=== PATIENT | male | born 1935 | race Caucasian/White ===

== ENCOUNTER 2016-07-18 12:09 | Inpatient (IN) | payer MEDICARE, MEDICAID ==
[~2016-07-18] VITALS: Ht 160 cm; Wt 65.8 kg
[~2016-07-18 12:09] MED LIST: AMLO5TAB4 PO; ASPI-605 PO; ATOR40TA PO; AZAT50TA7 PO; DONE10TA4 PO; ENOX30DI SQ; HYDR-552 PO; ISOS30TA47 PO; PANT40TA2 PO
[2016-07-18] MEDS ORDERED: IV NS 0.9% 500 ML BAG IV ONE (13:00)
[2016-07-18] MEDS ORDERED: IV NS 0.9% 500 ML IV ONE (13:12)
[2016-07-18] MEDS ORDERED: IV SET PRIMARY PUMP SET 1 EA INFUS.SET MC ONE ×3 (13:12→15:28)
[2016-07-18 13:24] LABS: DIFF TOTAL % 100 %; EOSINOPHILS % (AUTO) 0.1 % (0.0-6.0); HEMATOCRIT 43 % (39-51); LYMPHOCYTES # (AUTO) 1.1 /CMM (0.8-4.8); LYMPHOCYTES % (AUTO) 5.3 % (20.0-44.0); MEAN CORPUSCULAR HEMOGLOBIN 31 PG (26.0-33.0); MEAN CORPUSCULAR HGB CONC 33 g/dl (31.0-36.0); MEAN CORPUSCULAR VOLUME 94 fL (80-96); MONOCYTES # (AUTO) 1.6 /CMM (0.1-1.30); MONOCYTES % (AUTO) 7.8 % (2.0-12.0); NEUTROPHILS # (AUTO) 17.5 /CMM (1.8-8.9); NEUTROPHILS % (AUTO) 86.8 % (43.0-81.0); PLATELET COUNT (AUTO) 338 /CMM (150-450); RED BLOOD CELL COUNT(AUTO) 4.51 MIL/uL (4.5-6.0); WHITE BLOOD COUNT (AUTO) 20.2 K/uL (4.3-11.0)
[2016-07-18 13:38] LABS: CALCIUM, SERUM 9.3 mg/dL (8.5-10.1); CREATININE 1.6 mg/dL (0.6-1.3); POTASSIUM 4.8 mmol/L (3.5-5.1)
[2016-07-18 13:40] LABS: LACTIC ACID 1.8 mmol/L (0.4-2.0); TROPONIN I 0.338 ng/mL (0.00-0.056)
[2016-07-18 13:43] LABS: ALBUMIN 2.6 g/dL (3.4-5.0); BILIRUBIN,DIRECT 0.1 mg/dL (0.0-0.2); BILIRUBIN,TOTAL 0.4 mg/dL (0.2-1.0); INDIRECT BILIRUBIN 0.3 mg/dL (0.0-1.1); TOTAL PROTEIN, SERUM 8.1 g/dL (6.4-8.2)
[2016-07-18] MEDS ORDERED: DIVA125T2 PO (13:44)
[2016-07-18] MEDS ORDERED: VITA1TAB56 PO (13:44)
[2016-07-18] MEDS ORDERED: MAG30ORA PO (13:44)
[2016-07-18] MEDS ORDERED: OMEG1CAP40 PO (13:44)
[2016-07-18] MEDS ORDERED: ACET-868 PO (13:44)
[2016-07-18] MEDS ORDERED: LORA0.5T PO (13:44)
[2016-07-18] MEDS ORDERED: AMIN30LI4 PO (13:44)
[2016-07-18] MEDS ORDERED: MAGN400O6 PO (13:44)
[2016-07-18] MEDS ORDERED: HYDR-4076 PO (13:44)
[2016-07-18] MEDS ORDERED: ASPI-991 PO (13:44)
[2016-07-18] MEDS ORDERED: ALBU2.5V12 IH (13:45)
[2016-07-18 13:48] LABS: INR 1.17 (0.87-1.13); PROTHROMBIN TIME 12.7 SECS (9.5-12.7)
[2016-07-18 14:15] LABS: KETONES,URINE Negative (NEGATIVE); LEUKOCYTE ESTERASE ,URINE Large (NEGATIVE)
[2016-07-18 14:16] LABS: ADD UA MICROSCOPIC YES
[2016-07-18 14:29] LABS: RBC,URINE TOO NUMEROUS TO COUN /HPF (0-2); WBC,URINE TOO NUMEROUS TO COUN /HPF (0-3)
[2016-07-18 14:30] LABS: ADD URINE CULTURE YES
[2016-07-18] MEDS ORDERED: PIPERACILLIN /TAZOBACTAM 3.375 G in IV D5W 50 ML IV ONE (14:30)
[2016-07-18] MEDS ORDERED: LEVOFLOXACIN 750 MG /D5W 150ML 150 ML IV ONE ×2 (14:30→15:09)
[2016-07-18 14:48] LABS: LYMPHOCYTES % (MANUAL) 6 % (16-48)
[2016-07-18 14:49] LABS: PLATELET ESTIMATE ADEQUATE; RBC MORPHOLOGY COMMENT NORMAL RBC MORPH
[2016-07-18 15:00] VITALS: BP_SYST 161; BP_SYST 164; BP_DIAS 83; BP_DIAS 84
[2016-07-18] MEDS ORDERED: ASPIRIN 81 MG TAB.CHEW PO ONE (15:00)
[2016-07-18] MEDS ORDERED: ASPIRIN 81 MG TAB.CHEW ONE (15:09)
[2016-07-18] MEDS ORDERED: SECONDARY IV SET 1 EA INFUS.SET MC ONE (15:27)
[2016-07-18] MEDS ORDERED: IV NS 0.9% 250 ML IV ONE (15:29)
[2016-07-18] MEDS ORDERED: ALBUTEROL FS 2.5 MG/0.5 ML VIAL.NEB IH PRN (17:00)
[2016-07-18] MEDS ORDERED: ENOXAPARIN SODIUM 40 MG/0.4 ML DISP.SYRIN SQ SCH (17:00)
[2016-07-18] MEDS ORDERED: ACETAMINOPHEN 650 MG/SUPP.RECT RC PRN (17:00)
[2016-07-18] MEDS ORDERED: Z GUARD REMEDY 2 OZ OINT TP PRN (17:00)
[2016-07-18] MEDS ORDERED: ONDANSETRON HCL/PF 4 MG/2 ML VIAL IVP PRN (17:00)
[2016-07-18] MEDS ORDERED: HYDROCODONE/APAP 5/325MG 1 EACH TABLET PO PRN (17:00)
[2016-07-18] MEDS: DIVALPROEX SODIUM 125 MG TABLET.DR PO SCH (17:39)
[2016-07-18] MEDS: ENOXAPARIN SODIUM 30 MG/0.3 ML DISP.SYRIN SQ SCH (17:40)
[2016-07-18] MEDS: CEFTRIAXONE 1 G in IV D5W 50 ML IV SCH (18:00)
[2016-07-18 20:00] VITALS: BP 106/74
[2016-07-18] MEDS: ATORVASTATIN 40 MG TABLET PO SCH (21:52)
[2016-07-19] VITALS (7 sets, daily range): BP systolic 96–160; BP diastolic 55–92
[2016-07-19] MEDS: HYDROGEL DRESSING 90 GM TUBE TP SCH (09:00)
[2016-07-19] MEDS ORDERED: PANTOPRAZOLE 40 MG VIAL IV SCH (09:00)
[2016-07-19] MEDS ORDERED: Z GUARD REMEDY 2 OZ OINT TP PRN (09:00)
[2016-07-19] MEDS ORDERED: IV SET PRIMARY PUMP SET 1 EA INFUS.SET MC ONE (09:28)
[2016-07-19 09:33] LABS: BASOPHILS % (AUTO) 0.4 % (0.0-2.0); DIFF TOTAL % 100 %; EOSINOPHILS # (AUTO) 0.2 /CMM (0.0-0.7); EOSINOPHILS % (AUTO) 1.8 % (0.0-6.0); HEMATOCRIT 36 % (39-51); HEMOGLOBIN 11.8 g/dL (13.5-17.5); LYMPHOCYTES # (AUTO) 1.3 /CMM (0.8-4.8); LYMPHOCYTES % (AUTO) 10.9 % (20.0-44.0); MEAN CORPUSCULAR HEMOGLOBIN 31 PG (26.0-33.0); MEAN CORPUSCULAR HGB CONC 33 g/dl (31.0-36.0); MEAN CORPUSCULAR VOLUME 94 fL (80-96); MONOCYTES # (AUTO) 1.1 /CMM (0.1-1.30); MONOCYTES % (AUTO) 9.1 % (2.0-12.0); NEUTROPHILS # (AUTO) 9.3 /CMM (1.8-8.9); NEUTROPHILS % (AUTO) 77.8 % (43.0-81.0); PLATELET COUNT (AUTO) 319 /CMM (150-450); RED BLOOD CELL COUNT(AUTO) 3.81 MIL/uL (4.5-6.0)
[2016-07-19 09:59] LABS: CALCIUM, SERUM 8.9 mg/dL (8.5-10.1); CREATININE 1.4 mg/dL (0.6-1.3); POTASSIUM 4.4 mmol/L (3.5-5.1)
[2016-07-19] MEDS: DIVALPROEX SODIUM 125 MG TABLET.DR PO SCH ×3 (10:31→18:24)
[2016-07-19] MEDS: IV D5/0.45 NACL 1,000 ML IV PRN ×2 (10:31→21:18)
[2016-07-19] MEDS: ASPIRIN EC 81 MG TABLET.DR PO SCH (10:32)
[2016-07-19] MEDS: ISOSORBIDE DINITRATE (10MG) 10 MG TABLET PO SCH (10:32)
[2016-07-19] MEDS: PANTOPRAZOLE 40 MG TABLET.DR PO SCH (10:33)
[2016-07-19] MEDS: Z GUARD REMEDY 2 OZ OINT TP SCH (17:00)
[2016-07-19] MEDS ORDERED: SECONDARY IV SET 1 EA INFUS.SET MC ONE (17:24)
[2016-07-19] MEDS: CEFTRIAXONE 1 G in IV D5W 50 ML IV SCH (18:24)
[2016-07-19] MEDS: ATORVASTATIN 40 MG TABLET PO SCH (21:17)
[2016-07-19] MEDS: ENOXAPARIN SODIUM 30 MG/0.3 ML DISP.SYRIN SQ SCH (21:43)
[2016-07-20] MEDS: PANTOPRAZOLE 40 MG TABLET.DR PO SCH (07:30)
[2016-07-20 08:00] VITALS: BP 147/87
[2016-07-20] MEDS: ASPIRIN EC 81 MG TABLET.DR PO SCH (08:29)
[2016-07-20] MEDS: DIVALPROEX SODIUM 125 MG TABLET.DR PO SCH ×3 (08:29→17:33)
[2016-07-20] MEDS: ISOSORBIDE DINITRATE (10MG) 10 MG TABLET PO SCH (08:29)
[2016-07-20] MEDS: HYDROGEL DRESSING 90 GM TUBE TP SCH (08:31)
[2016-07-20] MEDS: Z GUARD REMEDY 2 OZ OINT TP SCH ×2 (08:31→17:36)
[2016-07-20] MEDS: IV D5/0.45 NACL 1,000 ML IV PRN (08:34)
[2016-07-20] MEDS ORDERED: LIDOCAINE 1%-EPI 1:100,000 50 ML VIAL IJ ONE (10:30)
[2016-07-20] MEDS ORDERED: SILVER NITRATE APPLICATOR 1 EA BOX TP ONE ×2 (10:30)
[2016-07-20 10:47] LABS: CALCIUM, SERUM 8.6 mg/dL (8.5-10.1); CREATININE 1.2 mg/dL (0.6-1.3); POTASSIUM 3.7 mmol/L (3.5-5.1)
[2016-07-20] MEDS ORDERED: IV SET PRIMARY PUMP SET 1 EA INFUS.SET MC ONE (12:17)
[2016-07-20] MEDS: IV D5W 1,000 ML IV PRN (12:21)
[2016-07-20 16:00] VITALS: BP 157/84
[2016-07-20] MEDS: CEFTRIAXONE 1 G in IV D5W 50 ML IV SCH (17:35)
[2016-07-20 20:00] VITALS: BP 139/79
[2016-07-20] MEDS: ATORVASTATIN 40 MG TABLET PO SCH (22:13)
[2016-07-20] MEDS: ENOXAPARIN SODIUM 30 MG/0.3 ML DISP.SYRIN SQ SCH (22:15)
[2016-07-21] MEDS: IV D5W 1,000 ML IV PRN (06:14)
[2016-07-21 07:16] LABS: BASOPHILS % (AUTO) 0.4 % (0.0-2.0); DIFF TOTAL % 100 %; EOSINOPHILS # (AUTO) 0.5 /CMM (0.0-0.7); EOSINOPHILS % (AUTO) 5.7 % (0.0-6.0); HEMATOCRIT 35 % (39-51); HEMOGLOBIN 11.8 g/dL (13.5-17.5); LYMPHOCYTES # (AUTO) 1.7 /CMM (0.8-4.8); MEAN CORPUSCULAR HEMOGLOBIN 31 PG (26.0-33.0); MEAN CORPUSCULAR HGB CONC 34 g/dl (31.0-36.0); MEAN CORPUSCULAR VOLUME 93 fL (80-96); MONOCYTES # (AUTO) 0.8 /CMM (0.1-1.30); MONOCYTES % (AUTO) 8.3 % (2.0-12.0); NEUTROPHILS # (AUTO) 6.3 /CMM (1.8-8.9); NEUTROPHILS % (AUTO) 67.6 % (43.0-81.0); PLATELET COUNT (AUTO) 299 /CMM (150-450); RED BLOOD CELL COUNT(AUTO) 3.75 MIL/uL (4.5-6.0); WHITE BLOOD COUNT (AUTO) 9.3 K/uL (4.3-11.0)
[2016-07-21 07:41] LABS: ALBUMIN 2.1 g/dL (3.4-5.0); BILIRUBIN,TOTAL 0.4 mg/dL (0.2-1.0); CALCIUM, SERUM 8.4 mg/dL (8.5-10.1); PHOSPHORUS 2.9 mg/dL (2.5-4.9); TOTAL PROTEIN, SERUM 6.7 g/dL (6.4-8.2)
[2016-07-21 08:00] VITALS: BP 146/75
[2016-07-21] MEDS: DIVALPROEX SODIUM 125 MG TABLET.DR PO SCH ×3 (08:41→16:53)
[2016-07-21] MEDS: ASPIRIN EC 81 MG TABLET.DR PO SCH (08:41)
[2016-07-21] MEDS: PANTOPRAZOLE 40 MG TABLET.DR PO SCH (08:41)
[2016-07-21] MEDS: ISOSORBIDE DINITRATE (10MG) 10 MG TABLET PO SCH (08:41)
[2016-07-21] MEDS ORDERED: CEPH-569 PO (11:44)
[2016-07-21] MEDS: Z GUARD REMEDY 2 OZ OINT TP SCH ×2 (11:59→17:02)
[2016-07-21] MEDS: HYDROGEL DRESSING 90 GM TUBE TP SCH (12:00)
[2016-07-21 16:00] VITALS: BP 98/60
[2016-07-21] MEDS: CEFTRIAXONE 1 G in IV D5W 50 ML IV SCH (17:04)
[2016-07-21 20:00] VITALS: BP 118/69
[2016-07-21] MEDS: ENOXAPARIN SODIUM 30 MG/0.3 ML DISP.SYRIN SQ SCH (21:00)
[2016-07-21] MEDS: ATORVASTATIN 40 MG TABLET PO SCH (22:31)
[2016-07-22] MEDS: IV D5W 1,000 ML IV PRN ×2 (04:21→14:53)
[2016-07-22 08:00] VITALS: BP_SYST 152; BP_SYST 154; BP_DIAS 87
[2016-07-22] MEDS: ISOSORBIDE DINITRATE (10MG) 10 MG TABLET PO SCH (08:40)
[2016-07-22] MEDS: DIVALPROEX SODIUM 125 MG TABLET.DR PO SCH ×3 (08:40→16:53)
[2016-07-22] MEDS: PANTOPRAZOLE 40 MG TABLET.DR PO SCH (08:40)
[2016-07-22] MEDS: ASPIRIN EC 81 MG TABLET.DR PO SCH (08:40)
[2016-07-22] MEDS: Z GUARD REMEDY 2 OZ OINT TP SCH ×2 (08:41→16:53)
[2016-07-22] MEDS: HYDROGEL DRESSING 90 GM TUBE TP SCH (08:41)
[2016-07-22] MEDS ORDERED: SECONDARY IV SET 1 EA INFUS.SET MC ONE ×2 (12:53→14:42)
[2016-07-22] MEDS: CEFEPIME 1 GM in IV D5W 50 ML IV SCH ×2 (13:04→21:28)
[2016-07-22] MEDS ORDERED: FEE PK DOSING 1 MIN EA MC ONE (13:55)
[2016-07-22] MEDS: VANCOMYCIN 1 GM in IV D5W 250 ML IV SCH (14:46)
[2016-07-22 16:26] VITALS: BP 123/61
[2016-07-22 20:00] VITALS: BP 130/59
[2016-07-22] MEDS: ENOXAPARIN SODIUM 30 MG/0.3 ML DISP.SYRIN SQ SCH (21:00)
[2016-07-22] MEDS: ATORVASTATIN 40 MG TABLET PO SCH (21:28)
[2016-07-23] MEDS: IV D5W 1,000 ML IV PRN (03:03)
[2016-07-23] MEDS: CEFEPIME 1 GM in IV D5W 50 ML IV SCH ×2 (04:35→13:30)
[2016-07-23 07:27] LABS: BASOPHILS % (AUTO) 0.2 % (0.0-2.0); DIFF TOTAL % 100 %; EOSINOPHILS # (AUTO) 0.7 /CMM (0.0-0.7); EOSINOPHILS % (AUTO) 5.8 % (0.0-6.0); HEMATOCRIT 37 % (39-51); HEMOGLOBIN 12.4 g/dL (13.5-17.5); LYMPHOCYTES # (AUTO) 1.7 /CMM (0.8-4.8); LYMPHOCYTES % (AUTO) 13.8 % (20.0-44.0); MEAN CORPUSCULAR HEMOGLOBIN 32 PG (26.0-33.0); MEAN CORPUSCULAR HGB CONC 34 g/dl (31.0-36.0); MEAN CORPUSCULAR VOLUME 94 fL (80-96); MONOCYTES # (AUTO) 1.1 /CMM (0.1-1.30); MONOCYTES % (AUTO) 8.8 % (2.0-12.0); NEUTROPHILS # (AUTO) 8.7 /CMM (1.8-8.9); NEUTROPHILS % (AUTO) 71.4 % (43.0-81.0); PLATELET COUNT (AUTO) 315 /CMM (150-450); RED BLOOD CELL COUNT(AUTO) 3.91 MIL/uL (4.5-6.0); WHITE BLOOD COUNT (AUTO) 12.1 K/uL (4.3-11.0)
[2016-07-23 07:34] LABS: CALCIUM, SERUM 8.2 mg/dL (8.5-10.1); CREATININE 1.2 mg/dL (0.6-1.3); POTASSIUM 3.7 mmol/L (3.5-5.1)
[2016-07-23 08:00] VITALS: BP 110/67
[2016-07-23] MEDS: VANCOMYCIN 1 GM in IV D5W 250 ML IV SCH (08:37)
[2016-07-23] MEDS: ASPIRIN EC 81 MG TABLET.DR PO SCH (08:37)
[2016-07-23] MEDS: PANTOPRAZOLE 40 MG TABLET.DR PO SCH (08:37)
[2016-07-23] MEDS: DIVALPROEX SODIUM 125 MG TABLET.DR PO SCH ×3 (08:37→17:21)
[2016-07-23] MEDS: ISOSORBIDE DINITRATE (10MG) 10 MG TABLET PO SCH (08:38)
[2016-07-23] MEDS: HYDROGEL DRESSING 90 GM TUBE TP SCH (08:39)
[2016-07-23] MEDS: Z GUARD REMEDY 2 OZ OINT TP SCH ×2 (08:39→17:21)
[2016-07-23 16:00] VITALS: BP 109/45
[2016-07-23] MEDS ORDERED: LACTOBACILLUS RHAMNOSUS GG 1 EACH CAP.SPRINK PO SCH (17:00)
[2016-07-23 20:00] VITALS: BP 107/65
== END 2016-07-23 20:55 | DRG 871 ==
LOC: ER 12:11 → TELE 14:20 → MED 07-19 11:44
PROVIDERS: ADMIT Internal Medicine; ATTEND Internal Medicine
DX: A41.9 Sepsis, unspecified organism (principal); I21.4 Non-ST elevation (NSTEMI) myocardial infarction; N17.0 Acute kidney failure with tubular necrosis; G93.40 Encephalopathy, unspecified; J18.9 Pneumonia, unspecified organism; L89.153 Pressure ulcer of sacral region, stage 3; E87.0 Hyperosmolality and hypernatremia; I69.854 Hemiplegia and hemiparesis following other cerebrovascular disease affecting left non-dominant side; N39.0 Urinary tract infection, site not specified; F03.91 Unspecified dementia, unspecified severity, with behavioral disturbance; I25.10 Atherosclerotic heart disease of native coronary artery without angina pectoris; I12.9 Hypertensive chronic kidney disease with stage 1 through stage 4 chronic kidney disease, or unspecified chronic kidney disease; N18.9 Chronic kidney disease, unspecified; S70.221A Blister (nonthermal), right hip, initial encounter; X58.XXXA Exposure to other specified factors, initial encounter; Y92.9 Unspecified place or not applicable; E78.00 Pure hypercholesterolemia, unspecified; E86.9 Volume depletion, unspecified; F32.9 Major depressive disorder, single episode, unspecified; Z95.1 Presence of aortocoronary bypass graft; D63.8 Anemia in other chronic diseases classified elsewhere; Y93.9 Activity, unspecified; Y92.89 Other specified places as the place of occurrence of the external cause; Y99.9 Unspecified external cause status; S30.821A Blister (nonthermal) of abdominal wall, initial encounter; I65.23 Occlusion and stenosis of bilateral carotid arteries; E11.22 Type 2 diabetes mellitus with diabetic chronic kidney disease; B95.62 Methicillin resistant Staphylococcus aureus infection as the cause of diseases classified elsewhere; B96.5 Pseudomonas (aeruginosa) (mallei) (pseudomallei) as the cause of diseases classified elsewhere; R65.20 Severe sepsis without septic shock
CPT/HCPCS: 36415; 71010-TC; 80048-TC; 80053-TC; 80076-TC; 81000-TC; 82962-TC; 83540-TC; 83605-TC; 83735-TC; 83880; 84100-TC; 84484-TC; 85025-TC; 85730-TC; 87040-TC; 87081-TC; 87086-TC; 87186-TC; 87400; 92611-TC; 94799-TC; 97001-TC; 97110-TC; 97530-TC; A4606; A6248; A6402; J0692; J0696; J1650; J1956; J2543; J3370; J3490; J7040; J7050; J7060; J7070; Z7610